=== PATIENT | male | born 1980 | race Caucasian/White ===

== ENCOUNTER 2019-04-07 17:06 | Emergency (ER) | payer MEDICAID, OTHER ==
[~2019-04-07] VITALS: Ht 177.8 cm; Wt 77.6 kg
[~2019-04-07 17:06] MED LIST: LEVO0.3T5 PO
[2019-04-07 17:29] VITALS: BP 123/78
[2019-04-07] MEDS: DEXAMETHASONE 10 MG/ML VIAL IM ONE (19:40)
[2019-04-07 19:47] VITALS: BP 118/74
== END 2019-04-07 19:47 | disposition home or self-care (01) ==
LOC: MED 17:06
DX: J40 Bronchitis, not specified as acute or chronic (principal); E07.9 Disorder of thyroid, unspecified; Z79.899 Other long term (current) drug therapy
CPT/HCPCS: 87804; 96372; 99283; J1100

== ENCOUNTER 2019-09-12 09:20 | Emergency (ER) | payer MEDICAID ==
[~2019-09-12] VITALS: Ht 177.8 cm; Wt 83.9 kg
--- NOTE | 2019-09-12 09:22 | NUR ---
Patient taken to bed 11.
[2019-09-12 09:27] VITALS: BP 129/94
--- NOTE | 2019-09-12 09:32 | NUR ---
39 YO MALE CO RIGHT HIP AND LEG PAIN. PT STATES THAT PAIN IS IN HIP AND HIS RIGHT FOOT AND LEG ARE NUMB. PT STATES PAIN IS 10/10 WHEN WALKING OR STANDING ONLY. PT HAS HX OF LOWER BACK PAIN D/T HEAVY LIFTING IN WAREHOUSE JOB. PMH: THYROID ISSUE MED: SYNTHROID
[2019-09-12] MEDS ORDERED: KETOROLAC 60 MG/2 ML VIAL IM ONE (09:55)
--- NOTE | 2019-09-12 10:32 | NUR ---
Patient taken to XRAY via wheelchair by tech.
[2019-09-12 11:07] VITALS: BP 131/87
--- NOTE | 2019-09-12 11:08 | NUR ---
Patient discharged with v/s stable. Written and verbal after care instructions given and explained. Patient alert, oriented and verbalized understanding of instructions. Ambulatory with steady gait. All questions addressed prior to discharge. ID band removed. Patient advised to follow up with PMD. Rx of MOTRIN, MEDROL, TRAMADOL AND ROBAXIN given. Patient educated on indication of medication including possible reaction and side effects. Opportunity to ask questions provided and answered.
== END 2019-09-12 11:08 | disposition home or self-care (01) ==
LOC: MED 09:20
DX: M54.31 Sciatica, right side (principal); E07.9 Disorder of thyroid, unspecified; Z79.899 Other long term (current) drug therapy
CPT/HCPCS: 72100; 96372; 99283; J1885